=== PATIENT | male | born 1995 | race Caucasian/White ===

== ENCOUNTER 2016-07-13 22:33 | Emergency (ER) | payer MEDICAID ==
--- NOTE | 2016-07-13 23:12 | ERNOTE ---
Date of Service: 07/13/16 Time Seen by Provider: 07/13/16 23:02 Stated Complaint: SORE THROAT Presenting Symptoms:: cough, sore throat, fever Source: patient Exam Limitations: no limitations Immunizations: IMMUNIZATION HX Immunizations Up to Date Yes History of Influenza Vaccine Yes Hx Pneumococcal Vaccination No Allergies/Adverse Reactions: Allergies amoxicillin [Amoxicillin] Allergy (Verified 07/13/16 22:41) Hives bee venom (honey bee) Allergy (Verified 07/13/16 22:41) Home Medications: HOME MEDICATIONS Oseltamivir Phosphate [Tamiflu] 75 mg PO BID #10 cap 07/13/16 [Last Taken Unknown] - History of Present Ilness Date (Duration): 07/13/16 Time (Timing): 23:08 Timing: constant Severity: moderate Frequency/Possible Cause: Reports: no prior episodes Modifying Factors - Improves: Reports: rest Modifying Factors - Worsens: Reports: nothing Associated Symptoms: Reports: cough, nasal congestion, sore throat, muscle aches , fever/chills Prior Treatment: Reports: other - 21-year-old male with 3 day history fever chills cough sore throat and body aches. Patient did not receive influenza vaccine this year. Reports multiple sick contacts but not sure what illness they have. Review of Systems - Review of Systems Constitutional: Present: fever, chills EYE: Present: no symptoms reported ENT: Present: nose congestion, sore throat Respiratory: Present: cough Cardiology: Present: no symptoms reported Gastrointestinal/Abdominal: Present: no symptoms reported Genitourinary: Present: no symptoms reported Musculoskeletal: Present: muscle pain, muscle stiffness Skin: Present: no symptoms reported Neurological: Present: no symptoms reported Endocrine: Present: no symptoms reported Hematologic/Lymphatic: Present: no symptoms reported Psych: Present: no symptoms reported - Patient's Past Medical History Patient History - Medical: No pertinent hx Patient History - Cardiac/Respiratory: No pertinent hx Patient History - Cancer: No Hx of Cancer Patient History - Surgical Procedures: Appendectomy Patient History - Other: None - Social History Living Situations: home Abuse History: No History of abuse Psych History: No pertinent hx Smoking Status: Current every day smoker Do you dip or chew tobacco: Yes Alcohol Use: occasionally Drug Use: none - Immunizations Immunizations Up to Date: Yes Hx Pneumococcal Vaccination: No History of Influenza Vaccine: Yes Physical Exam - Physical Exam General Appearance: Present: wd/wn, mild distress Eye Exam: Normal inspection: bilateral, PERRL: bilateral, EOMI: bilateral Ears, Nose, Throat: Present: nasal congestion, pharyngeal erythema, tonsillar swelling Neck: Present: nontender, supple, full range of motion, lymphadenopathy (R), lymphadenopathy (L) - negative Brudzinski sign. Respiratory: Present: no respiratory distress, normal breath sounds, chest nontender, lungs clear Cardiovascular/Chest: Present: regular rate, rhythm - not tachycardic on my exam. No murmur no gallop no rub. 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 Symptom complex most suggestive of influenza syndrome in patient we do not receive vaccine this year. We will initiate Tamiflu. Should strep culture returned as positive we'll treat accordingly. - Results and Orders Patient's Lab Results:: I have reviewed the patient's lab results. - Vital Signs Patient's Vital Signs:: I have reviewed the patient's vital signs. Vital Signs: Vital Signs 07/13/16 22:37 Temperature 37.0 C Pulse Rate 107 H Respiratory 18 Rate Blood Pressure 154/85 O2 Sat by Pulse 98 Oximetry - Progress/Reassessment Chief Complaint: Upper Respiratory Symptoms Plan - Plan Plan: Patient push fluids 6-8 large glasses of water daily. Patient to return to work when feeling better. Follow-up if not markedly better 5-7 days with primary provider. Departure - Departure Clinical Impression: Influenza Disposition: Home self-care Condition: Good Referrals: Jim Negron DO [Primary Care Provider] - Prescriptions: Oseltamivir Phosphate [Tamiflu] 75 mg PO BID #10 cap
[2016-07-13] MEDS ORDERED: OSELTAMIVIR PHOSPHATE 75 MG CAPSULE PO ONE ×2 (23:35→23:37)
[2016-07-13 23:48] VITALS: BP 154/75
== END 2016-07-13 23:55 | disposition home or self-care (01) ==
LOC: ER 22:33
DX: J10.1 Influenza due to other identified influenza virus with other respiratory manifestations (principal); F17.210 Nicotine dependence, cigarettes, uncomplicated

== ENCOUNTER 2016-09-18 01:57 | Emergency (ER) | payer SELFPAY ==
[2016-09-18] MEDS ORDERED: DOXYCYCLINE HYCLATE 100 MG TABLET PO ONE (02:02)
[2016-09-18 02:09] VITALS: BP 142/72
[2016-09-18] MEDS ORDERED: DOXYCYCLINE HYCLATE 100 MG TABLET ONE (02:09)
--- NOTE | 2016-09-18 02:11 | ERNOTE ---
Lower Extremity HPI - Narrative Date of Service: 09/18/16 - General Lower Extremities Pain: leg: right Time Seen by Provider: 09/18/16 02:01 Source: patient - Immun/Allergies/Home Medications Immunizations: IMMUNIZATION HX Immunizations Up to Date Yes History of Influenza Vaccine Yes Hx Pneumococcal Vaccination No Allergies/Adverse Reactions: Allergies Allergy/AdvReac Type Severity Reaction Status Date / Time amoxicillin [Amoxicillin] Allergy Hives Verified 09/18/16 02:10 venom-honey bee Allergy Verified 09/18/16 02:10 [bee venom (honey bee)] Home Medications: HOME MEDICATIONS Doxycycline Hyclate [Morgidox] 100 mg PO BID #13 capsule 09/18/16 [Last Taken Unknown] - History of Present Illness Narrative: Bitten by a tic on the right leg last week. Today he noted redness at the sit of the wound in the form of a bulls eye. No fevers, chills, arthralgias or myalgias. Occurred: last week Location of Incident: other Method of Injury: Reports: other - tic bite Modifying Factors - (Improves): Reports: other Modifying Factors - (Worsens): Reports: other Other Injuries: Reports: none Review of Systems - Review of Systems Constitutional: Present: no symptoms reported EYE: Present: no symptoms reported ENT: Present: no symptoms reported Respiratory: Present: no symptoms reported Cardiology: Present: no symptoms reported Gastrointestinal/Abdominal: Present: no symptoms reported Genitourinary: Present: no symptoms reported Musculoskeletal: Present: no symptoms reported Skin: Present: See HPI Neurological: Present: no symptoms reported Endocrine: Present: no symptoms reported Hematologic/Lymphatic: Present: no symptoms reported - Patient's Past Medical History Patient History - Medical: No pertinent hx Patient History - Cardiac/Respiratory: No pertinent hx Patient History - Cancer: No Hx of Cancer Patient History - Surgical Procedures: Appendectomy Patient History - Other: None - Social History Living Situations: home Abuse History: No History of abuse Psych History: No pertinent hx Alcohol Use: occasionally Drug Use: none - Immunizations Immunizations Up to Date: Yes Hx Pneumococcal Vaccination: No History of Influenza Vaccine: Yes Physical Exam - Physical Exam General Appearance: Present: no apparent distress Eye Exam: Normal inspection: bilateral, PERRL: bilateral Ears, Nose, Throat: Present: normal ENT inspection Neck: Present: normal inspection Respiratory: Present: no respiratory distress Cardiovascular/Chest: Present: regular rate, rhythm Gastrointestinal/Abdominal: Present: nondistended Back Exam: Present: normal inspection Extremity Exam: Present: normal inspection, other - right leg- obvious target lesion at the right distal leg. There is a small amount of serous drainage. No fluctuance. 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 - Progress/Reassessment Progress:: Unchanged Departure Clinical Impression: Tick bite - Departure Disposition: Home self-care Condition: Good Instructions: Insect Bite Print Language: Guatem[place] Referrals: Jim Negron DO [Primary Care Provider] - Prescriptions: Doxycycline Hyclate [Morgidox] 100 mg PO BID #13 capsule
== END 2016-09-18 02:14 | disposition home or self-care (01) ==
LOC: ER 01:57
DX: S80.861A Insect bite (nonvenomous), right lower leg, initial encounter (principal); W57.XXXA Bitten or stung by nonvenomous insect and other nonvenomous arthropods, initial encounter

== ENCOUNTER 2016-12-02 17:59 | Emergency (ER) | payer BC, MEDICAID ==
[2016-12-02] MEDS ORDERED: diphenhydrAMINE HCL 50 MG/ML VIAL IM ONE (18:31)
[2016-12-02] MEDS ORDERED: METHYLPREDNISOLONE ACETATE 80 MG/ML VIAL IM ONE (18:31)
[2016-12-02] MEDS ORDERED: METHYLPREDNISOLONE ACETATE 80 MG/ML VIAL ONE (18:36)
[2016-12-02] MEDS ORDERED: diphenhydrAMINE HCL 50 MG/ML VIAL ONE (18:37)
--- NOTE | 2016-12-02 18:47 | ERNOTE ---
Integumentary HPI - Narrative Date of Service: 12/02/16 - General Time Seen by Provider: 12/02/16 18:26 Source: patient Exam Limitations: no limitations - Immun/Allergies/Home Medications Immunizations: IMMUNIZATION HX Immunizations Up to Date Yes History of Influenza Vaccine No Hx Pneumococcal Vaccination No Allergies/Adverse Reactions: Allergies Allergy/AdvReac Type Severity Reaction Status Date / Time amoxicillin [Amoxicillin] Allergy Hives Verified 09/18/16 02:10 venom-honey bee Allergy Verified 09/18/16 02:10 [bee venom (honey bee)] Home Medications: HOME MEDICATIONS predniSONE [Prednisone] 3 tab PO DAILY #9 tab 12/02/16 [Last Taken Unknown] - History of Present Illness Narrative: Pt. comes in with c/o generalized rash with bulbous welts over rash areas. Pt. denies any SOB, CP, NVD, fever, but states that [place] Review of Systems - Review of Systems Constitutional: Present: no symptoms reported. Absent: recent illness, fever, chills, weakness, fatigue, malaise EYE: Present: no symptoms reported ENT: Present: no symptoms reported Respiratory: Present: no symptoms reported. Absent: shortness of breath, cough , wheezing Cardiology: Present: no symptoms reported. Absent: chest pain, palpitations, edema Skin: Present: rash - diffuse on arms face and legs Neurological: Present: no symptoms reported. Absent: headache, dizziness/light- headedness, weakness, numbness, tingling All Other Systems: All systems neg except as marked - Patient's Past Medical History Patient History - Medical: No pertinent hx Patient History - Cardiac/Respiratory: No pertinent hx Patient History - Cancer: No Hx of Cancer Patient History - Surgical Procedures: Appendectomy Patient History - Other: None - Social History Living Situations: home Abuse History: No History of abuse Psych History: No pertinent hx Smoking Status: Current every day smoker Patient requests Smoking Cessation Consult: No Initiate information on Smoking Cessation: No Alcohol Use: occasionally Drug Use: none - Immunizations Immunizations Up to Date: Yes Hx Pneumococcal Vaccination: No History of Influenza Vaccine: No Physical Exam - Physical Exam General Appearance: Present: wd/wn, alert, no apparent distress Eye Exam: Normal inspection: bilateral, PERRL: bilateral, EOMI: bilateral Ears, Nose, Throat: Present: normal ENT inspection, normal pharynx Neck: Present: normal inspection, nontender. Absent: lymphadenopathy (R), lymphadenopathy (L) Respiratory: Present: no respiratory distress, normal breath sounds, no accessory muscle use, chest nontender, lungs clear Cardiovascular/Chest: Present: regular rate, rhythm, no murmur, normal peripheral pulses Extremity Exam: Present: non-tender, normal range of motion, no edema Neurological Exam: Present: alert, oriented, normal mood/affect, no motor/ sensory deficits Skin Exam: Present: other - diffuse bulbous rash on face B arms and legs blistered. ED Progress - Vital Signs Patient's Vital Signs:: I have reviewed the patient's vital signs. Vital Signs: Vital Signs 12/02/16 18:18 Temperature 37.1 C Pulse Rate 80 Respiratory 18 Rate Blood Pressure 141/90 O2 Sat by Pulse 98 Oximetry - Progress/Reassessment Chief Complaint: Rash Departure Clinical Impression: Poison oak dermatitis - Departure Disposition: Home self-care Condition: Good Instructions: Poison [place] Dermatitis, [id number] Additional Instructions: Please follow up with primary provider in 2-3 days. Continue benedryl every 6 hours. Prescriptions: predniSONE [Prednisone] 3 tab PO DAILY #9 tab
[2016-12-03 00:31] VITALS: BP 139/62
== END 2016-12-02 19:03 | disposition home or self-care (01) ==
LOC: ER 17:59
DX: L23.7 Allergic contact dermatitis due to plants, except food (principal); Z72.0 Tobacco use